=== PATIENT | male | born 1955 | race Caucasian/White ===

== ENCOUNTER → 2018-06-15 | Outpatient (CLI) | payer OTHER ==
[~2018-06-15] VITALS: Ht 193 cm; Wt 136.1 kg
[~2018-06-15] MED LIST: CETI10TA17 PO; FLUT9.9S NS; METF-399 PO; PIOG45TA7 PO; PRAV40TA2 PO; VALS40TA9 PO
== END | disposition home or self-care (01) ==
LOC: PREOP 05:51
PROVIDERS: ATTEND Orthopaedic Surgery Orthopaedic Surgery of the Spine
DX: Z01.818 Encounter for other preprocedural examination (principal)

== ENCOUNTER 2018-06-26 08:05 | Day surgery (SDC) | payer MEDICARE, OTHER ==
[~2018-06-26] VITALS: Ht 193 cm; Wt 136.1 kg
[~2018-06-26 08:05] MED LIST changes: +INSU100I32 SQ; +TAMS0.4C2 PO; +VALS1TAB76 PO
[2018-06-26] MEDS ORDERED: ceFAZolin 2 GM IV Premixed 50 ML IV ONE (08:15)
[2018-06-26 08:30] VITALS: BP 147/90
[2018-06-26] MEDS: LACTATED RINGERS 1,000 ML IV PRN ×2 (08:40→12:15)
[2018-06-26] MEDS ORDERED: SEVOFLURANE (ULTANE) 15 ML INHAL SOLN ONE ×5 (10:02→11:45)
[2018-06-26] MEDS ORDERED: SUCCINYLCHOLINE INJ 100 MG/5 ML SYR ONE (10:02)
[2018-06-26] MEDS ORDERED: ROCURONIUM 10 MG/ML 5 ML SYRINGE IV ONE (10:02)
[2018-06-26] MEDS ORDERED: LIDOCAINE PF 2% 5 ML (XYLOCAINE) VIAL ONE (10:02)
[2018-06-26] MEDS ORDERED: proPOfol 200 MG/20 ML (DIPRIVAN) VIAL IV ONE (10:02)
[2018-06-26] MEDS ORDERED: fentaNYL INJECTION 100 MCG/2 ML AMP ONE ×2 (10:03→11:39)
[2018-06-26] MEDS ORDERED: MIDAZOLAM 2 MG/2 ML (VERSED) VIAL ONE (10:03)
[2018-06-26] MEDS ORDERED: VANCOMYCIN 1000 MG/VIAL ONE (10:19)
[2018-06-26] MEDS ORDERED: GENTAMICIN 40 MG/ML 2 ML INJ SDV ONE (10:19)
[2018-06-26] MEDS ORDERED: HYDR-3812 PO (11:15)
[2018-06-26] MEDS ORDERED: DEXMEDETOMIDINE 200 MCG/2 ML (PRECEDEX) VIAL IV ONE (11:45)
[2018-06-26] MEDS ORDERED: ONDANSETRON 4 MG/2 ML (SDV) Z0FRAN ONE (11:45)
[2018-06-26] MEDS ORDERED: NEOSTIGMINE 1 MG/ML 5 ML SYRINGE ONE (12:00)
[2018-06-26] MEDS ORDERED: GLYCOPYRROLATE 0.2 MG/ML (ROBINUL) 2 ML VIAL ONE (12:00)
[2018-06-26] MEDS: BUP/EPI 0.5% 1:200,000 (SENSORCAINE) 30 ML VIAL ONE (12:09)
--- NOTE | 2018-06-26 12:13 | Progress Note-Post Operative ---
Post-Operative Progess Note Surgeon (s)/Laborer Tree Tapping (s) Surgeon SINDY LAROIS MD Laborer Tree Tapping: LY [place] Pre-Operative Diagnosis LUMBAGO Post-Operative Diagnosis Same Procedure & Operative Findings Date of Procedure 06/26/18 Procedure Performed/Findings PSCS via Laminectomy Anesthesia Type GETA Estimated Blood Loss Estimated blood loss (mL): Min Specimens/Packing Specimens Removed None SINDY LARIOS MD Jun 26, 2018 12:13 pm
[2018-06-26 13:55] VITALS: BP 91/50
--- NOTE | 2018-06-26 14:05 | Diagnostic Imaging Report ---
INDICATION: Fluoroscopy during spinal cord simulator placement. TECHNIQUE/FINDINGS: Fluoroscopy was provided in the OR during spinal cord stimulator placement. 13 seconds of fluoroscopy was utilized. A single image does show a paddle stimulator overlying the lower thoracic spine. IMPRESSION: Fluoroscopy during spinal cord stimulator placement. Dictated by: Dictated on workstation # [id number]
[2018-06-26 14:15] VITALS: BP 92/52
--- NOTE | 2018-06-26 14:32 | Anesthesia-General Post-Op ---
General Patient Condition Mental Status/LOC: Same as Preop Cardiovascular: Satisfactory Nausea/Vomiting: Absent Respiratory: Satisfactory Pain: Controlled Complications: Absent Post Op Complications Complications None Follow Up Care/Instructions Patient Instructions None needed. Anesthesia/Patient Condition Patient Condition Patient is doing well, no complaints, stable vital signs, no apparent adverse anesthesia problems. No complications reported per nursing. FATMATA CANO CRNA Jun 26, 2018 14:32
[2018-06-26 14:45] VITALS: BP 113/85
[2018-06-26] MEDS ORDERED: HYDROcodone/APAP 5 MG/325 MG (LORTAB) TAB PO ONE (15:00)
--- NOTE | 2018-06-26 18:13 | OPERATIVE REPORT ---
DATE OF SERVICE: 06/26/2018 PREOPERATIVE DIAGNOSIS: Chronic lumbago, failed spine surgery syndrome and chronic radiculopathy. POSTOPERATIVE DIAGNOSIS: Chronic lumbago, failed spine surgery syndrome and chronic radiculopathy. PROCEDURE PERFORMED: 1. T10-T11 level laminectomy for placement of T8-T9 level paddle electrode. 2. Left-sided battery placement for spinal cord stimulation and complex programing. DATE AND TIME OF SURGERY: Please see anesthesia record. IMPLANTS USED: [employer] Penta Lead and [employer] Proclaim 7 battery. SURGEON: Sindy Castellanos MD MILK DELIVERER: LIDA De La Paz. ROLE OF COUTURIERE: Aid in retraction of the procedure, aid in implantation and tissue and wound closure. ANESTHESIA: General endotracheal. ESTIMATED BLOOD LOSS: Minimal. INTRAVENOUS FLUIDS: Please see anesthesia record. ANTIBIOTICS: Ancef. COMPLICATIONS: None. SPECIMEN: None. INDICATIONS: The patient is 62-year-old male with previous cervical spine surgery, persistent pain, failed conservative therapy, had a trial of great pain relief, desires permanent placement. DESCRIPTION OF PROCEDURE: The patient was taken to the preoperative holding area and brought back to the operative suite. After adequate induction of general anesthesia, preoperative antibiotics, carefully turned prone on Janes table, careful padding to all extremities, sterilely prepped and draped posterior thoracic and lumbar spine. Spinal monitoring was performed throughout the procedure and stable. Standard intraoperative neurophysiologic monitoring was carried out by means of real time continuous high quality bidirectional remote audio and visual communication to both the design technician and surgeon by Dr. Schmidt was performed. SSEPs, EMGs and TOFs were carried out continuously throughout the procedure. The localization of the appropriate levels was performed and then a small incision was made overlying T10-T11. Laminotomy was created. Paddle electrode was placed up to T8-T9 without difficulty assured to be in a midline position, anchored into place at the lamina level. Fascia was then closed and it was anchored again at the fascial level. Strain relief loops were created. It was tunneled to the left-sided battery placement overlying his left hip and gluteal region connected to a Proclaim battery and inserted into position and functioning well. Programming was performed. Imaging was obtained. Wounds were irrigated, closed in layers. The patient was transferred to recovery room in stable condition having tolerated the procedure well. Job ID: [id number] DocumentID: [id number] Dictated Date: 06/26/2018 12:11:20 Vacuum Truck Driver Date: 06/26/2018 18:12:39 Dictated By: SINDY CASTELLANOS MD
== END 2018-06-26 15:35 | disposition home or self-care (01) ==
LOC: SDC 08:05
PROVIDERS: ATTEND Orthopaedic Surgery Orthopaedic Surgery of the Spine
DX: M54.16 Radiculopathy, lumbar region (principal); E11.40 Type 2 diabetes mellitus with diabetic neuropathy, unspecified; E78.5 Hyperlipidemia, unspecified; I10 Essential (primary) hypertension; Z79.4 Long term (current) use of insulin; Z79.899 Other long term (current) drug therapy; Z88.0 Allergy status to penicillin
CPT/HCPCS: 82962; 87081